=== PATIENT | male | born 1960 | race Caucasian/White ===

== ENCOUNTER → 2017-03-05 | Emergency (ER) | payer OTHER ==
[~2017-03-05] VITALS: Ht 185.4 cm; Wt 114.0 kg
[~2017-03-05] MED LIST: ALLO100T PO; AMLO5TAB4 PO; ASPI-586 PO; ATOR20TA PO; CALC500T3 PO; COLC0.6T11 PO; ERYTHROMYCIN 0.5% OPHTHALMIC OINTMENT 1 GM TUBE OS ONE; EYE WASH 120 ML BTL OS ONE; FLUORESCEIN (FLUOR-I-STRIPS) 1 MG STRIP OS ONE; LSNP10T PO; LSNP20T PO; LVT.025T PO; MELO-249 PO; METF500T4 PO; MMT17NA; MTF500TCR PO; TETRACAINE 0.5% OPHTHALMIC SOLUTION 4 ML BTL OS ONE
--- OUTSIDE RECORDS SUMMARY | 2017-03-05 09:16 | XMS REPORT | Continuity of Care Document ---
Author Author [facility] Address Unknown Phone Unavailable Allergies Active Description Code Type Severity Reaction Onset Reported/Identified Relationship to Patient Clinical Status Yes No Known Drug Allergies [id number] Drug Allergy Unknown N/ A 06/18/2013 Medications Problems Date Dx Coded Attending Type Code Diagnosis Diagnosed By 06/18/2013 Ot 530.19 06/18/2013 Ot 530.3 06/18/2013 Ot 787.29 06/18/2013 Ot V76.51 01/09/2015 Jena HOYT, Seth Kwan Ot 787.20 03/12/2015 Ot 786.50 03/12/2015 Ot V72.81 07/25/2015 Jena HOYT, Seth Kwan Ot 787.20 07/28/2015 Jena HOYT, Seth Kwan Ot 787.20 10/25/2015 ROSELYN HOYT, TONIO Corley Ot M54.2 10/25/2015 ROSELYN HOYT, TONIO Corley Ot S16.1XXA 10/25/2015 ROSELYN HOYT, TONIO Corley Ot S40.011A 10/25/2015 ROSELYN HOYT, TONIO Corley Ot W00.1XXA 10/25/2015 ROSELYN HOYT, TONIO Corley Ot Y92.096 10/25/2015 ROSELYN HOYT, TONIO Corley Ot Y93.89 12/27/2015 CRISTIN HOYT, ANIA P Ot E03.9 12/27/2015 CRISTIN HOYT, ANIA P Ot E11.9 12/27/2015 CRISTIN HOYT, ANIA P Ot G89.29 12/27/2015 CRISTIN HOYT, ANIA P Ot I10 12/27/2015 CRISTIN HOYT, ANIA P Ot K92.0 12/27/2015 CRISTIN HOYT, ANIA P Ot R13.10 12/27/2015 CRISTIN HOYT, ANIA P Ot Z79.4 08/18/2016 SEBASTIAN BERKOWITZ DO Ot S61.212A LACERATION W/O FB OF R MID FINGER W/ O DA 08/18/2016 SEBASTIAN BERKOWITZ DO Ot W24.0XXA CONTACT W [employer], NOT ELSEWHERE 08/31/2016 SEBASTIAN BERKOWITZ DO Ot S61.212A LACERATION W/O FB OF R MID FINGER W/ O DA 08/31/2016 SEBASTIAN BERKOWITZ DO Ot W24.0XXA CONTACT W [employer], NOT ELSEWHERE Procedures Results Encounters ACCT No. Visit Date/Time Discharge Status Pt. Type Provider Facility Loc./Unit Complaint [id number] 08/18/2016 16:40:00 2015 18:16:00 DIS Emergency [facility] ED [id number] 12/26/2015 22:02:00 2015 11:20:00 DIS Inpatient CRISTIN [facility] MED[facility]SURG [id number] 10/25/2015 12:03:00 2014 13:54:00 DIS Emergency ROSELYN HOYT, TONIO Corley [facility] ED [id number] 12/20/2014 08:44:00 2014 23:59:59 CLS Outpatient Jena HOYT, [facility] RAD [id number] 12/29/2015 09:00:00 PEN [facility] RAD [id number] 12/20/2014 08:44:00 Document Registration [id number] 06/18/2013 09:19:00 Document Registration [id number] 05/18/2012 08:37:00 Document Registration [id number] 05/11/2012 12:37:00 Document Registration
--- OUTSIDE RECORDS SUMMARY | 2017-03-05 09:18 | XMS REPORT | Continuity of Care Document ---
Author Author [facility] Address Unknown Phone Unavailable Allergies Active Description Code Type Severity Reaction Onset Reported/Identified Relationship to Patient Clinical Status Yes No Known Drug Allergies [id number] Drug Allergy Unknown N/ A 06/18/2013 Medications [...] Status Pt. Type Provider Facility Loc./Unit Complaint [id number] 08/18/2016 16:40:00 2015 18:16:00 DIS Emergency [facility] ED [id number] 12/26/2015 22:02:00 2015 11:20:00 DIS Inpatient CRISTIN HOYT, [facility] MED/SURG [id number] 10/25/2015 12:03:00 2014 13:54:00 DIS Emergency ROSELYN HOYT, TONIO Corley [facility] ED [id number] 12/20/2014 08:44:00 2014 23:59:59 CLS Outpatient Jena HOYT, [facility] RAD [id number] 12/29/2015 09:00:00 PEN [facility] RAD [id number] 12/20/2014 08:44:00 Document Registration [id number] 06/18/2013 09:19:00 Document Registration [id number] 05/18/2012 08:37:00 Document Registration [id number] 05/11/2012 12:37:00 Document Registration
[2017-03-05 10:55] VITALS: BP 122/85
== END ==
LOC: ED 09:14
DX: H10.32 Unspecified acute conjunctivitis, left eye (principal)
CPT/HCPCS: 99282; 99283